=== PATIENT | female | born 1945 | race African-American/Black ===

== ENCOUNTER 2017-12-20 12:44 | Emergency (ER) | payer MEDICARE, MEDICAID ==
[2017-12-20 13:10] LABS: #Eosinphils 0.1 thou/uL (0.0-0.7); #Lymphocytes 3.1 thou/uL (1.20-3.40); #Monocytes 0.4 thou/uL (0.11-0.59); #Neutrophils 3.5 thou/uL (1.40-6.50); %Basophils 0.6 % (0.0-1.0); %Eosinophils 0.8 % (0.0-10.0); %Lymphocytes 43.5 % (21.0-51.0); %Monocytes 4.9 % (0.0-10.0); %Neutrophils 50.2 % (42.0-75.0); Hemoglobin 13.1 g/dL (12.0-16.0); Mean Corpuscular Hemoglobin 29.9 pg (27.0-31.0); Mean Corpuscular Volume 90.7 fL (78.0-98.0); Mean Platelet Volume 8.9 fL (7.4-10.4); Platelet Count 223 thou/uL (130-400); RBC Distribution Width 13.9 % (11.5-14.5); Red Blood Cell (RBC) Count 4.37 mill/uL (4.20-5.40)
[2017-12-20 13:27] LABS: ALT (SGPT) Less than 7 U/L (8-55); AST (SGOT) 16 U/L (5-34); Albumin 3.7 g/dL (3.4-4.8); Alkaline Phosphatase 54 U/L (40-150); Anion Gap 12 mmol/L (10-20); BUN (Urea Nitrogen) 8 mg/dL (9.8-20.1); Bilirubin, Total 0.5 mg/dL (0.2-1.2); CK (CPK) 62 U/L (29-168); Calc. Creatinine Clearance 0 mL/min (70-130); Calcium 9.2 mg/dL (7.8-10.44); Carbon Dioxide 22 mmol/L (23-31); Chloride 109 mmol/L (98-107); Estimated GFR-MDRD 85; Glucose 139 mg/dL (83-110); Potassium 3.9 mmol/L (3.5-5.1); Protein, Total 6.7 g/dL (6.0-8.3); Sodium 139 mmol/L (136-145)
[2017-12-20 13:30] LABS: Troponin I Less than 0.010 ng/mL (< 0.028)
[2017-12-20] MEDS ORDERED: Lidocaine 5% Patch TD SCH (14:30)
[2017-12-21] MEDS ORDERED: Lidocaine Patch Removal 1 EACH TOP SCH (02:30)
== END 2017-12-20 15:12 | disposition home or self-care (01) ==
LOC: ERS 12:44
DX: R55 Syncope and collapse (principal); F17.210 Nicotine dependence, cigarettes, uncomplicated; E78.5 Hyperlipidemia, unspecified; I10 Essential (primary) hypertension; I49.9 Cardiac arrhythmia, unspecified
CPT/HCPCS: 80053; 82550; 82553; 84484; 93005

== ENCOUNTER → 2017-12-20 | Day surgery (SDC) | payer MEDICARE, MEDICAID ==
[~2017-12-20] MED LIST: Fentanyl 100 MCG/2 ML VIAL ONE; HYDROcodone/Acetaminophen 5/325 mg Tablet ONE; Midazolam HCl 2 mg/2 ml Vial ONE; Prevnar 13-Val Conj/PF 0.5 ML SYRINGE IM ONE
[2017-12-20 08:26] LABS: #Eosinphils 0.1 thou/uL (0.0-0.7); #Lymphocytes 1.3 thou/uL (1.20-3.40); #Monocytes 0.4 thou/uL (0.11-0.59); #Neutrophils 3.5 thou/uL (1.40-6.50); %Basophils 0.5 % (0.0-1.0); %Lymphocytes 24.5 % (21.0-51.0); Mean Corpuscular HGB CONC 33.1 g/dL (32.0-36.0); Mean Corpuscular Hemoglobin 30.1 pg (27.0-31.0); Mean Corpuscular Volume 91.2 fL (78.0-98.0); Mean Platelet Volume 8.5 fL (7.4-10.4); Platelet Count 223 thou/uL (130-400); Red Blood Cell (RBC) Count 4.31 mill/uL (4.20-5.40); White Blood Cell (WBC) Count 5.3 thou/uL (4.8-10.8)
[2017-12-20 08:58] LABS: PTT 29.1 SEC (22.9-36.1); Prothrombin Time 13.1 SEC (12.0-14.7)
[2017-12-20 11:39] VITALS: BP 152/63; TEMP 97.2
--- NOTE | 2017-12-20 12:02 | CT ---
RIGHT RENAL BIOPSY: HISTORY: A 72-year-old with a history of proteinuria. TECHNIQUE: Informed consent was obtained from the patient. The right kidney was visualized using CT guidance. The overlying skin was prepped and draped in the usual sterile manner. A 1% Lidocaine solution was u sed to anesthetized the overlying soft tissues. An outer 17 gauge needle was placed into the right r enal parenchyma. Three 2.2 cm core biopsies were obtained. Specimens were sent to pathology. After the biopsy was completed, a Gelfoam pledget was used to help with hemostasis. A post biopsy small p erirenal capsular hematoma was visualized. IMPRESSION: Successful CT guided right renal biopsy. Pathology is pending. POS: [facility]
[2017-12-20 12:21] LABS: Hemoglobin 13.2 g/dL (12.0-16.0)
== END ==
LOC: CT 08:04
PROVIDERS: ATTEND Internal Medicine Nephrology
PROC: 0TB03ZX Excision of Right Kidney, Percutaneous Approach, Diagnostic (ICD-10-PCS; principal; 2017-12-20)
DX: I12.9 Hypertensive chronic kidney disease with stage 1 through stage 4 chronic kidney disease, or unspecified chronic kidney disease (principal); N18.2 Chronic kidney disease, stage 2 (mild); D63.1 Anemia in chronic kidney disease; E87.6 Hypokalemia; E55.9 Vitamin D deficiency, unspecified; E78.5 Hyperlipidemia, unspecified; F17.210 Nicotine dependence, cigarettes, uncomplicated; I25.10 Atherosclerotic heart disease of native coronary artery without angina pectoris; Z95.5 Presence of coronary angioplasty implant and graft
CPT/HCPCS: 36415; 50200; 77002; 80053; 82550; 82553; 84484; 85025; 85610; 85730; 92950; 93005; J2250; J3010